=== PATIENT | female | born 1975 | race Caucasian/White ===

== ENCOUNTER 2022-03-17 11:00 | Emergency (ER) | payer SELFPAY ==
[~2022-03-17] VITALS: Ht 165.1 cm; Wt 64.0 kg
[2022-03-17 11:02] VITALS: BP 167/107
[2022-03-17] MEDS ORDERED: ACETAMINOPHEN 500MG TABLET PO NR (13:45)
== END 2022-03-17 15:01 | disposition home or self-care (01) ==
LOC: ER 11:00
DX: M54.2 Cervicalgia (principal); R07.89 Other chest pain; I10 Essential (primary) hypertension; V13.4XXA Pedal cycle driver injured in collision with car, pick-up truck or van in traffic accident, initial encounter; Y93.89 Activity, other specified; Y92.488 Other paved roadways as the place of occurrence of the external cause
CPT/HCPCS: 71046; 99283

== ENCOUNTER 2024-01-07 16:15 | Emergency (ER) | payer SELFPAY ==
[~2024-01-07] VITALS: Ht 157.5 cm; Wt 76.2 kg
[2024-01-07 16:38] VITALS: O2SAT 98
[2024-01-07] MEDS: TETRACAINE 0.5% OPHTH DROPS 4ML RIGHTEYE ONE (17:45)
[2024-01-07] MEDS: FLUORESCEIN SODIUM 1MG/STRIP RIGHTEYE ONE (17:45)
[2024-01-07] MEDS ORDERED: ERYT1OIN6 RIGHTEYE (18:42)
[2024-01-07 19:27] VITALS: BP 146/99; PULSE 63; RESP 18; TEMP 98.4
== END 2024-01-07 19:46 | disposition home or self-care (01) ==
LOC: ER 16:15
DX: S05.01XA Injury of conjunctiva and corneal abrasion without foreign body, right eye, initial encounter (principal); I10 Essential (primary) hypertension; H10.9 Unspecified conjunctivitis; X58.XXXA Exposure to other specified factors, initial encounter; Y93.89 Activity, other specified; Y92.89 Other specified places as the place of occurrence of the external cause; Y99.8 Other external cause status
CPT/HCPCS: 99283